=== PATIENT | female | born 1955 | race African-American/Black ===

== ENCOUNTER 2017-02-20 08:48 | Day surgery (SDC) | payer OTHER ==
[2017-02-19 14:12] VITALS: BMI 27.1
[2017-02-20 10:08] VITALS: TEMP 97.6
[2017-02-20 11:45] VITALS: BP 107/64; PULSE 73
--- NOTE | 2017-02-21 13:55 | PATH ---
Surgical Pathology Report Patient Name: ASTER RAYA [facility]. Rec. #: [id number] /Age/Gender: 1955 (Age: 61) / F Account: [id number] Location: [facility]-ENDOSCOPY Taken: 02/20/2017 Received: 02/20/2017 Reported: 02/21/2017 Physicians: Andry Arvizu D.O. Specimen(s) Received A: BX GASTRIC ANTRUM B: BX BODY Clinical History History of ulcers Gastritis Final Diagnosis A. STOMACH, SCAR OF GASTRIC ANTRUM, BIOPSY: GASTRIC ANTRAL MUCOSA WITH MODERATE CHRONIC GASTRITIS AND MARKED REACTIVE GASTROPATHY WITH FOVEOLAR HYPERPLASIA AND SURFACE EROSION; FOCAL LAMINA PROPRIA FIBROSIS COMPATIBLE WITH SCAR. IMMUNOSTAIN FOR H. PYLORI IS NEGATIVE FOR ORGANISMS. B. STOMACH, BODY, BIOPSY: GASTRIC OXYNTIC MUCOSA WITH MODERATE CHRONIC GASTRITIS. IMMUNOSTAIN FOR H. PYLORI IS NEGATIVE FOR ORGANISMS. Electronically Signed Alexis Toussaint M.D. Gross Description A. Received in formalin, labeled "biopsy scar of gastric antrum" are 4 connolly, irregular portions of soft tissue ranging from 0.3-0.6 cm in greatest dimension. The specimens are submitted in toto in one cassette. B. Received in formalin, labeled "biopsy body" are 3 connolly, irregular portions of soft tissue ranging from 0.2-0.3 cm.in greatest dimension. The specimens are submitted in toto in one cassette. /02/20/2017 saudi02/20/2017
== END 2017-02-20 11:30 | disposition home or self-care (01) ==
LOC: JASU-ENDO 08:48
PROVIDERS: ATTEND Internal Medicine Gastroenterology
PROC: 0DB68ZX Excision of Stomach, Via Natural or Artificial Opening Endoscopic, Diagnostic (ICD-10-PCS; principal; 2017-02-20 09:30)
DX: K25.9 Gastric ulcer, unspecified as acute or chronic, without hemorrhage or perforation (principal)
CPT/HCPCS: 88305-TC; 88342-TC

== ENCOUNTER 2017-02-27 09:34 | Day surgery (SDC) | payer OTHER ==
[2017-02-26 15:03] VITALS: BMI 32.3
[2017-02-27 11:22] VITALS: TEMP 97.8
[2017-02-27 14:14] VITALS: BP 130/88; PULSE 80
--- NOTE | 2017-03-05 11:19 | PATH ---
Surgical Pathology Report Patient Name: ASTER RAYA [facility]. Rec. #: [id number] /Age/Gender: 1955 (Age: 61) / F Account: [id number] Location: [facility]-ENDOSCOPY Taken: 02/27/2017 Received: 02/27/2017 Reported: 02/28/2017 Physicians: Andry Arvizu D.O. Specimen(s) Received A: POLYP RIGHT COLON B: BX CECAL POLYPS Clinical History Colon screening Hemorrhoids, diverticulosis, colon polyps Final Diagnosis A. COLON, RIGHT, POLYP, POLYPECTOMY: HYPERPLASTIC-TYPE POLYP WITH FEATURES OF SESSILE SERRATED ADENOMA. B. COLON, CECUM, POLYPS (x3), BIOPSY: CONSISTENT WITH INFLAMMATORY/POSTINFLAMMATORY-TYPE POLYPS (x3). Electronically Signed Alexis Toussaint M.D. Gross Description A. Received in formalin, labeled "polyp right colon" is a connolly, polypoid portion of soft tissue measuring 0.6 cm in greatest dimension. The specimen is submitted in toto in one cassette. B. Received in formalin, labeled "biopsy cecal polyp" are 3 connolly, irregular portions of soft tissue ranging from 0.1-0.2 cm in greatest dimension. The specimens are submitted in toto in one cassette. 02/27/201702/27/2017
== END 2017-02-27 12:45 | disposition home or self-care (01) ==
LOC: JASU-ENDO 09:34
PROVIDERS: ATTEND Internal Medicine Gastroenterology
PROC: 0DBH8ZX Excision of Cecum, Via Natural or Artificial Opening Endoscopic, Diagnostic (ICD-10-PCS; 2017-02-27)
PROC: 0DBK8ZX Excision of Ascending Colon, Via Natural or Artificial Opening Endoscopic, Diagnostic (ICD-10-PCS; principal; 2017-02-27 10:30)
DX: Z12.11 Encounter for screening for malignant neoplasm of colon (principal); D12.2 Benign neoplasm of ascending colon; D12.0 Benign neoplasm of cecum; K57.30 Diverticulosis of large intestine without perforation or abscess without bleeding
CPT/HCPCS: 88305-TC